=== PATIENT | female | born 1945 | race Hispanic/Latino ===

== ENCOUNTER → 2018-06-10 | Outpatient (CLI) | payer OTHER ==
[~2018-06-10] MED LIST: ALEN70TA2 PO; ASPI-1005 PO; CALC-190 PO; LATA7.5D OP; REGADENOSON 0.4 MG/5 ML PF SYG IVP ONE
== END | disposition home or self-care (01) ==
LOC: SHCH 08:57
PROVIDERS: ATTEND Internal Medicine Cardiovascular Disease
DX: R94.31 Abnormal electrocardiogram [ECG] [EKG] (principal); I20.9 Angina pectoris, unspecified; I10 Essential (primary) hypertension; E78.5 Hyperlipidemia, unspecified
CPT/HCPCS: 78452; 93017; 96374; A9500 ×2; J2785

== ENCOUNTER 2018-06-11 22:23 | Observation (INO) | payer OTHER ==
[~2018-06-11] VITALS: Ht 154.9 cm; Wt 68.0 kg
[2018-06-11] MEDS ORDERED: NITROGLYCERIN 1GM/1 INCH PACKET TD ONE (23:02)
[2018-06-11] MEDS ORDERED: ASPIRIN 325 MG TABLET ONE (23:02)
[2018-06-11 23:05] LABS: BASOPHILS % (AUTO) 0.6 % (0.0-5.0); EOSINOPHILS % (AUTO) 1.7 % (0.0-8.0); HEMATOCRIT 41.1 % (36-48); LYMPHOCYTES % (AUTO) 19.7 % (21.0-51.0); MEAN CORPUSCULAR HEMOGLOBIN 29.8 pg (27.0-33.0); MEAN CORPUSCULAR HGB CONC 33.8 g/dL (32.0-36.0); MONOCYTES % (AUTO) 7.3 % (3.0-13.0); NEUTROPHILS % (AUTO) 70.7 % (40.0-77.0); PLATELET COUNT (AUTO) 118 K/uL (130-400); RED BLOOD CELL COUNT(AUTO) 4.67 MIL/uL (4.00-5.50); RED CELL DISTRIBUTION WIDTH 14.3 % (11.0-15.5); WHITE BLOOD COUNT (AUTO) 5.9 K/uL (4.8-10.8)
[2018-06-11 23:18] LABS: CREATININE 0.7 mg/dL (0.5-1.5); POTASSIUM 3.4 mmol/L (3.5-5.1)
[2018-06-11 23:22] LABS: ALBUMIN 3.8 g/dL (3.5-5.0); BILIRUBIN,TOTAL 0.4 mg/dL (0.2-1.0); TOTAL PROTEIN, SERUM 7.9 g/dL (6.0-8.3)
[2018-06-12] MEDS ORDERED: MORPHINE SULFATE 2 MG/ML 1ML SYG IVP PRN (04:00)
[2018-06-12] MEDS ORDERED: ACETAMINOPHEN 325 MG TAB PO PRN (04:00)
[2018-06-12 05:52] LABS: CREATINE KINASE, TOTAL 61 U/L (21-232); MYOGLOBIN 25 ng/mL (10-92)
[2018-06-12] MEDS: NITROGLYCERIN 1GM/1 INCH PACKET TD SCH ×3 (05:59→21:25)
[2018-06-12 07:00] VITALS: BP 125/69
[2018-06-12 08:42] LABS: CREATINE KINASE, TOTAL 49 U/L (21-232); MYOGLOBIN 32 ng/mL (10-92); TROPONIN I < 0.04 ng/mL (0.00-0.06)
[2018-06-12 11:00] VITALS: BP 123/72
[2018-06-12] MEDS ORDERED: POTASSIUM CHLORIDE 20MEQ/100ML 100 ML IV PRN (11:30)
[2018-06-12] MEDS ORDERED: PHARMACY COMMUNICATION MISC SCH (11:30)
[2018-06-12] MEDS ORDERED: LIDOCAINE HCL-MPF 1% 2ML VIAL IVP PRN (11:30)
[2018-06-12] MEDS ORDERED: POTASSIUM CHLORIDE 10% ELIXIR 20 MEQ/15 ML UDCUP PO PRN (11:30)
[2018-06-12] MEDS ORDERED: LIDOCAINE HCL 2% VISCOUS 30 ML, MAG HYDROX/AL HYDROX/SIMETH 30 ML, DICYCLOMINE HCL 20 MG PO PRN ×3 (12:15)
[2018-06-12] MEDS ORDERED: COMPOUND PO MISCELLANEOUS 1 EACH MISC MISC PRN (12:15)
[2018-06-12] MEDS: POTASSIUM CHLORIDE 20 MEQ ERTAB PO PRN ×2 (12:42→15:15)
[2018-06-12 16:00] VITALS: BP 116/72
[2018-06-12] MEDS: PANTOPRAZOLE SODIUM 40 MG TABLET.DR PO SCH (16:15)
[2018-06-12 20:00] VITALS: BP 112/63
[2018-06-12] MEDS ORDERED: ALEN70TA2 PO (21:34)
[2018-06-12] MEDS ORDERED: LATA7.5D OP (21:34)
[2018-06-12] MEDS ORDERED: ASPI-1005 PO (21:34)
[2018-06-12] MEDS ORDERED: CALC-190 PO (21:34)
[2018-06-13] VITALS: BP 111/46
[2018-06-13 04:00] VITALS: BP 113/69
[2018-06-13] MEDS: PANTOPRAZOLE SODIUM 40 MG TABLET.DR PO SCH ×2 (05:32→18:23)
[2018-06-13] MEDS: NITROGLYCERIN 1GM/1 INCH PACKET TD SCH (05:33)
[2018-06-13 05:59] LABS: HEMATOCRIT 37.3 % (36-48); MEAN CORPUSCULAR HEMOGLOBIN 30.3 pg (27.0-33.0); MEAN CORPUSCULAR HGB CONC 34.4 g/dL (32.0-36.0); NUCLEATED RED BLOOD CELLS 0.1 % (0.0-0.19); PLATELET COUNT (AUTO) 118 K/uL (130-400); RED BLOOD CELL COUNT(AUTO) 4.23 MIL/uL (4.00-5.50); RED CELL DISTRIBUTION WIDTH 14.7 % (11.0-15.5)
[2018-06-13 06:09] LABS: ALBUMIN 3.3 g/dL (3.5-5.0); BILIRUBIN,TOTAL 0.5 mg/dL (0.2-1.0); CREATININE 0.7 mg/dL (0.5-1.5)
[2018-06-13 08:25] VITALS: BP 98/58
[2018-06-13] MEDS ORDERED: CALCIUM 600 + VITAMIN D 400 TABLET PO SCH (09:00)
[2018-06-13] MEDS ORDERED: ASPIRIN 81MG TAB.CHEW PO SCH (09:00)
[2018-06-13] MEDS ORDERED: NITROGLYCERIN 0.4 MG SL TAB SL PRN (09:15)
[2018-06-13 12:19] VITALS: BP 108/67
[2018-06-13] MEDS ORDERED: NITROGLYCERIN 1GM/1 INCH PACKET TD SCH (14:00)
[2018-06-13 16:29] VITALS: BP 121/72
[2018-06-13 19:43] VITALS: BP 134/60
[2018-06-13] MEDS ORDERED: LATANOPROST 2.5 ML DROPS OP SCH (21:00)
[2018-06-19] MEDS ORDERED: ALENDRONATE SODIUM 35 MG TAB PO SCH (06:30)
== END 2018-06-13 20:00 | disposition home or self-care (01) ==
LOC: EDH 22:23 → EDHIP 06-12 02:45 → 3CH 06-12 03:37
PROVIDERS: ADMIT Internal Medicine Critical Care Medicine; ATTEND Internal Medicine Critical Care Medicine
DX: R07.89 Other chest pain (principal); I10 Essential (primary) hypertension; E78.5 Hyperlipidemia, unspecified; F41.9 Anxiety disorder, unspecified; Z79.82 Long term (current) use of aspirin; Z87.891 Personal history of nicotine dependence
CPT/HCPCS: 36415 ×3; 71045; 80053 ×2; 82550 ×3; 83874 ×2; 84484 ×3; 85025; 85027; 93005 ×2; 93306; 99285; A4510; G0378 ×41

== ENCOUNTER → 2018-06-21 | Outpatient (CLI) | payer OTHER ==
[~2018-06-21] MED LIST changes: -REGADENOSON 0.4 MG/5 ML PF SYG IVP ONE
== END | disposition home or self-care (01) ==
LOC: OIH 12:40
PROVIDERS: ATTEND Internal Medicine Cardiovascular Disease
DX: Z13.6 Encounter for screening for cardiovascular disorders (principal)
CPT/HCPCS: 75571

== ENCOUNTER → 2018-10-10 | Outpatient (CLI) | payer OTHER | END | disposition home or self-care (01) | LOC: RAH 11:13 | PROVIDERS: ATTEND Family Medicine | DX: Z12.31 Encounter for screening mammogram for malignant neoplasm of breast (principal) | CPT/HCPCS: 77067 ==

== ENCOUNTER → 2018-12-23 | Outpatient (CLI) | payer OTHER | END | disposition home or self-care (01) | LOC: SHCH 09:50 | PROVIDERS: ATTEND Internal Medicine Cardiovascular Disease | DX: R06.00 Dyspnea, unspecified (principal); I87.2 Venous insufficiency (chronic) (peripheral) | CPT/HCPCS: 93970 ==

== ENCOUNTER 2019-06-16 11:27 | Inpatient (IN) | payer OTHER ==
[~2019-06-16] VITALS: Ht 152.4 cm; Wt 65.8 kg
[2019-06-16] MEDS ORDERED: ASPIRIN 325 MG TABLET ONE (11:37)
[2019-06-16 12:01] LABS: BASOPHILS % (AUTO) 0.4 % (0.0-5.0); EOSINOPHILS % (AUTO) 0.3 % (0.0-8.0); HEMATOCRIT 36.9 % (36-48); LYMPHOCYTES % (AUTO) 8.3 % (21.0-51.0); MEAN CORPUSCULAR HEMOGLOBIN 29.7 pg (27.0-33.0); MEAN CORPUSCULAR HGB CONC 34.3 g/dL (32.0-36.0); MEAN CORPUSCULAR VOLUME 86.6 fL (79-99); MONOCYTES % (AUTO) 6.9 % (3.0-13.0); NEUTROPHILS % (AUTO) 84.1 % (40.0-77.0); PLATELET COUNT (AUTO) 178 K/uL (130-400); RED BLOOD CELL COUNT(AUTO) 4.26 MIL/uL (4.00-5.50); RED CELL DISTRIBUTION WIDTH 13.7 % (11.0-15.5); WHITE BLOOD COUNT (AUTO) 8.1 K/uL (4.8-10.8)
[2019-06-16 12:26] LABS: INR 1.01 (0.85-1.15); PARTIAL THROMBOPLASTIN TIME 30.4 SEC (26.3-35.5); POTASSIUM 3.3 mmol/L (3.5-5.1); PROTHROMBIN TIME 10.6 SEC (9.6-11.6)
[2019-06-16 12:27] LABS: ALBUMIN 3.4 g/dL (3.5-5.0); BILIRUBIN,TOTAL 0.8 mg/dL (0.2-1.0); CREATININE 0.8 mg/dL (0.5-1.5); TOTAL PROTEIN, SERUM 7.9 g/dL (6.0-8.3)
[2019-06-16 12:36] LABS: APPEARANCE,URINE CLEAR (CLEAR); BILIRUBIN,URINE NEGATIVE (NEGATIVE); COLOR,URINE YELLOW (YELLOW); GLUCOSE, URINE (UA) NEGATIVE (NEGATIVE); KETONES,URINE NEGATIVE (NEGATIVE); LEUKOCYTE ESTERASE ,URINE NEGATIVE (NEGATIVE); NITRATE,URINE NEGATIVE (NEGATIVE); OCCULT BLOOD,URINE TRACE-LYSED (NEGATIVE); PH,URINE 7.5 (5.0-8.0); PROTEIN,URINE NEGATIVE (NEGATIVE); UROBILINOGEN,URINE 0.2 mg/dL (0.2-1.0)
[2019-06-16 12:53] LABS: B-TYPE NATRIURETIC PEPTIDE 116 pg/mL (0-100)
[2019-06-16 12:54] LABS: RBC,URINE 0-1 /HPF (0-1); WBC,URINE 0-1 /HPF (0-1)
[2019-06-16 12:55] LABS: BACTERIA,URINE Rare /HPF (None Seen); SQUAMOUS EPITHELIAL CELL,UR 0-2 /HPF (0-2)
[2019-06-16] MEDS ORDERED: LEVOFLOXACIN 500 MG/D5W 100 ML 100 ML ONE (14:17)
[2019-06-16] MEDS ORDERED: CEFTRIAXONE SODIUM 1 GM ONE (15:17)
[2019-06-16] MEDS ORDERED: SODIUM CHLORIDE 0.9% 100 ML IV ONE (15:17)
[2019-06-16] MEDS: SODIUM CHLORIDE 0.9% 1000ML 1,000 ML IV SCH (16:50)
[2019-06-16] MEDS ORDERED: GUAIFENESIN-DM 200/20 MG 10 ML PO PRN (17:00)
[2019-06-16] MEDS ORDERED: LACTULOSE 20 GM/30 ML UDCUP PO PRN (17:00)
[2019-06-16] MEDS ORDERED: ONDANSETRON HCL 4 MG/2 ML VIAL IV PRN (17:00)
[2019-06-16] MEDS ORDERED: NITROGLYCERIN 0.4 MG SL TAB SL PRN (17:00)
[2019-06-16 17:30] LABS: HEMOGLOBIN A1C 5.8 % (4.0-6.0)
[2019-06-16 17:31] LABS: MAGNESIUM 1.9 mg/dL (1.80-2.40); PHOSPHORUS 4.3 mg/dL (2.5-4.9); THYROID STIMULATING HORMONE 0.67 uIU/mL (0.36-3.74)
[2019-06-16 18:36] VITALS: BP 145/59
[2019-06-16 19:00] VITALS: BP 154/73
[2019-06-16] MEDS ORDERED: PNEUMOCOCCAL VACCINE POLYVALENT 0.5 ML/VIAL [PPV] IM ONE (19:30)
[2019-06-16] MEDS ORDERED: ISOS30TA6 PO (19:35)
[2019-06-16] MEDS ORDERED: PRAV10TA39 PO (19:35)
[2019-06-16] MEDS ORDERED: LIDOCAINE HCL-MPF 1% 2ML VIAL IV PRN (20:45)
[2019-06-16] MEDS ORDERED: POTASSIUM CHLORIDE 10% ELIXIR 20 MEQ/15 ML UDCUP PO PRN (20:45)
[2019-06-16] MEDS ORDERED: POTASSIUM CHLORIDE 20MEQ/100ML 100 ML IV PRN (20:45)
[2019-06-16] MEDS ORDERED: MAGNESIUM 2GM PREMIX 50ML 50 ML IV PRN (20:45)
[2019-06-16] MEDS: DOCUSATE SODIUM 100 MG CAP PO SCH (21:31)
[2019-06-16] MEDS: POTASSIUM CHLORIDE 20 MEQ ERTAB PO PRN ×2 (21:32→23:46)
[2019-06-16 23:00] VITALS: BP 139/65
[2019-06-17] MEDS: POTASSIUM CHLORIDE 20 MEQ ERTAB PO PRN (02:20)
[2019-06-17 03:00] VITALS: BP 121/87
[2019-06-17] MEDS: SODIUM CHLORIDE 0.9% 1000ML 1,000 ML IV SCH ×2 (04:02→13:04)
[2019-06-17 07:04] LABS: BASOPHILS % (AUTO) 0.3 % (0.0-5.0); LYMPHOCYTES % (AUTO) 7.2 % (21.0-51.0); MEAN CORPUSCULAR HEMOGLOBIN 29.9 pg (27.0-33.0); MEAN CORPUSCULAR HGB CONC 34.3 g/dL (32.0-36.0); MEAN CORPUSCULAR VOLUME 87.2 fL (79-99); MONOCYTES % (AUTO) 5.4 % (3.0-13.0); NEUTROPHILS % (AUTO) 87.1 % (40.0-77.0); PLATELET COUNT (AUTO) 170 K/uL (130-400); RED BLOOD CELL COUNT(AUTO) 4.24 MIL/uL (4.00-5.50)
[2019-06-17 07:12] LABS: CREATININE 0.8 mg/dL (0.5-1.5); MAGNESIUM 2.5 mg/dL (1.80-2.40); POTASSIUM 4.7 mmol/L (3.5-5.1)
[2019-06-17 08:00] VITALS: BP 142/67
[2019-06-17] MEDS: OSELTAMIVIR PHOSPHATE 75 MG CAP PO SCH ×2 (09:00→17:12)
[2019-06-17] MEDS: FAMOTIDINE 20MG TAB 20 MG TAB PO SCH (09:00)
[2019-06-17] MEDS: DOCUSATE SODIUM 100 MG CAP PO SCH ×2 (09:00→20:28)
--- NOTE | 2019-06-17 11:36 | NUR ---
PAGED DR. HOFFMANN AND SPOKE TO RITESH LEVY THE PA [employer]SIAN HISTORY PROFESSOR FOR DR. HOFFMANN AND MADE HER AWARE THERE IS NO NEUROLOGIST [employer]ISTORY PROFESSOR FOR THE WEEKEND AND IF SHE WANTS PT TRANSFER TO A DIFFERENT FACILITY OR AN SOC, A REMOTE CONSULT. PA STATED TO STOP BY AND SEE PT. Addendum: 06/17/19 at 1248 by AMBER CRAIG RN RN PAGED DR. HOFFMANN AND SPOKE TO DEON WEBB THE CHURN DRILLER RUSSIAN HISTORY PROFESSOR FOR DR. HOFFMANN AND MADE HER AWARE THERE IS NO NEUROLOGIST [employer]SIAN HISTORY PROFESSOR FOR THE WEEKEND AND IF SHE WANTS PT TRANSFER TO A DIFFERENT FACILITY OR AN SOC, A REMOTE CONSULT DUE TO LIMITED ROM TO NECK, PA STATED TO STOP BY AND SEE PT.
[2019-06-17 12:00] VITALS: BP 136/75
--- NOTE | 2019-06-17 13:35 | NUR ---
Nutrition intervention: Nutrition notification as per Pt's request. Pt admitted for chest pain. Pt currently NPO awaiting for diet order from MD. Pt requesting to speak to RD to ask if she will be fed today. Pt assured diet will begin as soon as we obtain clearance from physician. Pt also asking when she will be going home, pt encouraged to speak to RN about POC and d/c plans. Pt reports unintended wt loss however UTD on how much weight and in how long of a time. Recommendations: when medically feasible, advance diet therapy to Heart Healthy. Monitor I/O. Consult RD as nutrition concerns arise. Addendum: 06/17/19 at [address] RD Amended: Links added.
[2019-06-17] MEDS: ENOXAPARIN SODIUM 30 MG/0.3 ML SQ SCH (14:28)
[2019-06-17 16:00] VITALS: BP 155/69
[2019-06-17] MEDS: HYDROCODONE/ACETAMINOPHEN 5/325 MG TAB PO PRN (17:11)
[2019-06-17 19:00] VITALS: BP 122/63
[2019-06-17 23:00] VITALS: BP 143/85
[2019-06-18] MEDS: SODIUM CHLORIDE 0.9% 1000ML 1,000 ML IV SCH ×3 (01:57→18:50)
[2019-06-18 03:00] VITALS: BP 141/89
[2019-06-18] MEDS: HYDROCODONE/ACETAMINOPHEN 5/325 MG TAB PO PRN ×2 (05:35→09:16)
[2019-06-18 06:05] LABS: BASOPHILS % (AUTO) 0.6 % (0.0-5.0); EOSINOPHILS % (AUTO) 1.3 % (0.0-8.0); HEMATOCRIT 34.9 % (36-48); LYMPHOCYTES % (AUTO) 14.4 % (21.0-51.0); MEAN CORPUSCULAR HEMOGLOBIN 29.5 pg (27.0-33.0); MEAN CORPUSCULAR HGB CONC 33.8 g/dL (32.0-36.0); MEAN CORPUSCULAR VOLUME 87.2 fL (79-99); MONOCYTES % (AUTO) 8.7 % (3.0-13.0); PLATELET COUNT (AUTO) 187 K/uL (130-400); RED BLOOD CELL COUNT(AUTO) 4.01 MIL/uL (4.00-5.50); RED CELL DISTRIBUTION WIDTH 13.3 % (11.0-15.5); WHITE BLOOD COUNT (AUTO) 6.4 K/uL (4.8-10.8)
[2019-06-18 06:18] LABS: CREATININE 0.7 mg/dL (0.5-1.5); POTASSIUM 3.6 mmol/L (3.5-5.1)
--- NOTE | 2019-06-18 07:50 | NUR ---
PATIENT UPDATE Patient slept better overnight, no chest pain, no shortness of breath. NSR in the 70's, no ectopies noted. Neck and left shoulder discomfort not as bad, able to get up to the bedside commode with assistance with less pain. Able to move better with less neck stiffness in the bed.
[2019-06-18 08:00] VITALS: BP 129/71
[2019-06-18] MEDS: DOCUSATE SODIUM 100 MG CAP PO SCH ×2 (09:09→20:36)
[2019-06-18] MEDS: FAMOTIDINE 20MG TAB 20 MG TAB PO SCH (09:09)
[2019-06-18] MEDS: OSELTAMIVIR PHOSPHATE 75 MG CAP PO SCH (09:09)
[2019-06-18] MEDS: ENOXAPARIN SODIUM 30 MG/0.3 ML SQ SCH (09:10)
[2019-06-18 11:28] VITALS: BP 136/65
[2019-06-18] MEDS ORDERED: HYDROMORPHONE HCL 0.5 MG/0.5 ML ML IVP PRN (12:30)
--- NOTE | 2019-06-18 12:37 | NUR ---
Dr. Tenorio called and notified of Consult. pending to see pt.
[2019-06-18] MEDS: DEXAMETHASONE SOD PHOSPHATE 4 MG/ML 1ML VIAL IVP SCH ×2 (14:07→22:16)
[2019-06-18 16:00] VITALS: BP 140/72
[2019-06-18 19:10] VITALS: BP 128/66
--- NOTE | 2019-06-18 19:28 | NUR ---
cm note pt resides at home with spouse, independent with ambulation/adls. no dme. no services. dc plan is back to home. Addendum: 06/18/19 at 1929 by QIANA SCHNEIDER CM Amended: Links added.
[2019-06-18] MEDS: BACLOFEN 10 MG TABLET PO SCH (20:36)
[2019-06-18 23:00] VITALS: BP 134/68
[2019-06-19] MEDS: SODIUM CHLORIDE 0.9% 1000ML 1,000 ML IV SCH ×2 (00:44→15:01)
[2019-06-19] MEDS: HYDROCODONE/ACETAMINOPHEN 5/325 MG TAB PO PRN (00:48)
--- NOTE | 2019-06-19 00:48 | NUR ---
PAIN Bledsoe given for c/o of headache.
--- NOTE | 2019-06-19 01:48 | NUR ---
MED EFFECT Pt resting quietly in bed,daughter at bedside.Pt wearing soft cervical collar,nicole well.
[2019-06-19 03:00] VITALS: BP 135/59
[2019-06-19 05:37] LABS: BASOPHILS % (AUTO) 0.1 % (0.0-5.0); HEMATOCRIT 36.8 % (36-48); LYMPHOCYTES % (AUTO) 9.9 % (21.0-51.0); MEAN CORPUSCULAR HEMOGLOBIN 29.5 pg (27.0-33.0); MEAN CORPUSCULAR HGB CONC 33.6 g/dL (32.0-36.0); MEAN CORPUSCULAR VOLUME 87.7 fL (79-99); MONOCYTES % (AUTO) 2.2 % (3.0-13.0); NEUTROPHILS % (AUTO) 87.8 % (40.0-77.0); PLATELET COUNT (AUTO) 192 K/uL (130-400); RED BLOOD CELL COUNT(AUTO) 4.19 MIL/uL (4.00-5.50); RED CELL DISTRIBUTION WIDTH 13.1 % (11.0-15.5); WHITE BLOOD COUNT (AUTO) 5.5 K/uL (4.8-10.8)
[2019-06-19] MEDS: DEXAMETHASONE SOD PHOSPHATE 4 MG/ML 1ML VIAL IVP SCH ×3 (05:49→22:04)
[2019-06-19 05:55] LABS: CREATININE 0.6 mg/dL (0.5-1.5); POTASSIUM 3.8 mmol/L (3.5-5.1)
[2019-06-19 07:30] VITALS: BP 138/62
[2019-06-19] MEDS: BACLOFEN 10 MG TABLET PO SCH ×3 (08:47→19:59)
[2019-06-19] MEDS: DOCUSATE SODIUM 100 MG CAP PO SCH ×2 (08:47→19:59)
[2019-06-19] MEDS: FAMOTIDINE 20MG TAB 20 MG TAB PO SCH (08:47)
[2019-06-19] MEDS: LACTULOSE 20 GM/30 ML UDCUP PO SCH (08:48)
[2019-06-19] MEDS: ENOXAPARIN SODIUM 30 MG/0.3 ML SQ SCH (08:49)
--- NOTE | 2019-06-19 10:41 | NUR ---
Pt Update Pt refused lumber puncture to r/o meningitis.
[2019-06-19 11:00] VITALS: BP 132/70
[2019-06-19 16:00] VITALS: BP 149/73
[2019-06-19 19:15] VITALS: BP 124/52
[2019-06-19] MEDS ORDERED: **HM**(Pravastatin Sodium 10 MG PO SCH (21:00)
[2019-06-19] MEDS ORDERED: LATANOPROST 2.5 ML DROPS OP SCH (21:00)
--- NOTE | 2019-06-19 21:00 | NUR ---
VACCINE Pneumonia vaccine offered,pt states she wants it in the morning.
[2019-06-19 23:20] VITALS: BP 142/71
[2019-06-20 03:20] VITALS: BP 162/62
[2019-06-20] MEDS: SODIUM CHLORIDE 0.9% 1000ML 1,000 ML IV SCH ×2 (03:23→10:50)
--- NOTE | 2019-06-20 03:29 | NUR ---
NEW IV New iv started to left forearm,nicole well.Old iv site was leaking,iv dcd.cath tip intact.
[2019-06-20] MEDS: DEXAMETHASONE SOD PHOSPHATE 4 MG/ML 1ML VIAL IVP SCH ×2 (06:01→14:00)
[2019-06-20 07:30] VITALS: BP 148/79
[2019-06-20] MEDS ORDERED: DOCU-275 PO (08:04)
[2019-06-20] MEDS ORDERED: BACL10TA PO (08:04)
[2019-06-20] MEDS: ISOSORBIDE MONO 30MG TAB SR PO SCH ×2 (09:00→12:00)
[2019-06-20] MEDS: BACLOFEN 10 MG TABLET PO SCH ×2 (09:00→14:00)
[2019-06-20] MEDS ORDERED: CALCIUM 600 + VITAMIN D 400 TABLET PO SCH (09:00)
[2019-06-20] MEDS ORDERED: ASPIRIN 81MG TAB.CHEW PO SCH (09:00)
[2019-06-20] MEDS: LACTULOSE 20 GM/30 ML UDCUP PO SCH (10:27)
[2019-06-20] MEDS: DOCUSATE SODIUM 100 MG CAP PO SCH (10:27)
[2019-06-20] MEDS: FAMOTIDINE 20MG TAB 20 MG TAB PO SCH (10:27)
[2019-06-20] MEDS: ENOXAPARIN SODIUM 30 MG/0.3 ML SQ SCH (10:28)
[2019-06-20 11:00] VITALS: BP 124/56
--- NOTE | 2019-06-20 11:30 | NUR ---
WALKING IN HALLWAY WITH PT/WALKER.
--- NOTE | 2019-06-20 11:56 | NUR ---
CM Note: dcp to home pt will f/u w/Dr King Miranda for HH PT CM met with pt discussed MD recommendations. Made aware pt does not qualify for rehab placement at pt able to ambulate 100Ft. Pt will follow up with PCP Dr. Rory Miranda w/[facility] for home health PT. Instructed pt, spouse and granddaughter to see Dr Miranda today/first thing tomorrow to get home health established for PT. Verbalized understanding. Primary nurse aware. CM to cont to follow up.
--- NOTE | 2019-06-20 15:54 | NUR ---
BETY NOTIFICATION/ FOLLOW UP DIET: HEART HEALTHY. PO INTAKE 75% AND HAS STEADY APPETITE PER PT. PT TOLERATING DIET WELL. LBM: 06/19. PT EATS SLOWLY TO ALLOW FOOD TO PASS SMOOTHLY WITHOUT DISCOMFORT PER PT. NO NAUSEA, EMESIS OR DIARRHEA AT THIS TIME. BETY RECOMMENDS CONTINUE CURRENT DIET. PT TOLERATING WELL. WILL CONTINUE TO MONITOR AND FOLLOW UP NEEDED. Addendum: 06/20/19 at [address] Amended: Links added.
--- NOTE | 2019-06-20 17:48 | NUR ---
DISCHARGED NOW USING TEACH BACK.VERBALIZES UNDERSTANDING OF ALL INST. GIVEN. MEDICATIONS TO BE PICKED UP AT [facility]. WILL FOLLOWUP WITH DR. LANGFORD. SCHEDULED.
[2019-06-26] MEDS ORDERED: ALENDRONATE SODIUM 35 MG TAB PO SCH (09:00)
== END 2019-06-20 17:40 | disposition home health service (06) | DRG 543 ==
LOC: EDH 11:27 → EDHIP 16:10 → OBSVTOIN 16:10 → 3BH 18:07
PROVIDERS: ADMIT Internal Medicine Pulmonary Disease; ATTEND Internal Medicine Pulmonary Disease
DX: M80.08XA Age-related osteoporosis with current pathological fracture, vertebra(e), initial encounter for fracture (principal); N39.0 Urinary tract infection, site not specified; E78.5 Hyperlipidemia, unspecified; I10 Essential (primary) hypertension; I25.10 Atherosclerotic heart disease of native coronary artery without angina pectoris; K59.00 Constipation, unspecified; M19.90 Unspecified osteoarthritis, unspecified site; R07.89 Other chest pain; X58.XXXA Exposure to other specified factors, initial encounter; Y93.89 Activity, other specified; Z79.83 Long term (current) use of bisphosphonates; Z87.891 Personal history of nicotine dependence; Z91.81 History of falling; Y92.89 Other specified places as the place of occurrence of the external cause; Y99.8 Other external cause status
CPT/HCPCS: 36415; 70450; 71045; 72125; 72131; 76770; 80048; 80053; 80061; 81001; 82150; 82550; 82948; 83036; 83605; 83735; 83880; 84100; 84443; 84484; 84702; 85025; 85610; 85651; 85730; 86140; 86308; 87040; 87088; 87804; 93005; 93306; 97039; G0378; J0696; J1100; J1650; J1956; J3475; J7030

== ENCOUNTER 2021-03-18 13:50 | Observation (INO) | payer OTHER ==
[~2021-03-18] VITALS: Ht 154.9 cm; Wt 65.7 kg
[~2021-03-18 13:50] MED LIST changes: +BACL10TA PO; +DOCU-270 PO; +ISOS30TA92 PO; +PRAV10TA39 PO
[2021-03-18 14:46] VITALS: BP 122/56
[2021-03-18 14:51] LABS: BASOPHILS % (AUTO) 0.4 % (0.0-5.0); EOSINOPHILS % (AUTO) 0.7 % (0.0-8.0); HEMATOCRIT 38.2 % (36-48); LYMPHOCYTES % (AUTO) 9.8 % (21.0-51.0); MEAN CORPUSCULAR HGB CONC 31.7 g/dL (32.0-36.0); MEAN CORPUSCULAR VOLUME 91.6 fL (79-99); MONOCYTES % (AUTO) 5.9 % (3.0-13.0); NEUTROPHILS % (AUTO) 83.1 % (40.0-77.0); PLATELET COUNT (AUTO) 128 K/uL (130-400); RED BLOOD CELL COUNT(AUTO) 4.17 MIL/uL (4.00-5.50); RED CELL DISTRIBUTION WIDTH 13.2 % (11.0-15.5)
[2021-03-18 15:02] LABS: INR 1.05 (0.85-1.15); PROTHROMBIN TIME 11.4 SEC (9.6-11.6)
[2021-03-18 15:03] LABS: CREATININE 0.8 mg/dL (0.5-1.5); POTASSIUM 3.9 mmol/L (3.5-5.1)
[2021-03-18 15:06] LABS: ALBUMIN 3.4 g/dL (3.5-5.0); BILIRUBIN,TOTAL 0.5 mg/dL (0.2-1.0); TOTAL PROTEIN, SERUM 6.7 g/dL (6.0-8.3)
[2021-03-18 15:12] LABS: B-TYPE NATRIURETIC PEPTIDE 104 pg/mL (0-100)
[2021-03-18 18:39] VITALS: BP 137/61
[2021-03-18] MEDS ORDERED: MAG/ALUM/SIMETH 30 ML UDCUP PO PRN (19:00)
[2021-03-18] MEDS ORDERED: NITROGLYCERIN 0.4 MG SL TAB SL PRN (19:00)
[2021-03-18] MEDS ORDERED: ACETAMINOPHEN 325 MG TAB PO PRN ×2 (19:00)
[2021-03-18] MEDS ORDERED: GUAIFENESIN-DM 200/20 MG 10 ML PO PRN (19:00)
[2021-03-18] MEDS ORDERED: LABETALOL 20MG SYG IV PRN (19:00)
[2021-03-18] MEDS ORDERED: BENZONATATE 100 MG CAPSULE PO PRN (19:00)
[2021-03-18] MEDS ORDERED: ONDANSETRON 4MG INJ IV PRN (19:00)
[2021-03-18] MEDS ORDERED: LACTULOSE 20 GM/30 ML UDCUP PO PRN (19:00)
[2021-03-18] MEDS ORDERED: ZOLPIDEM TARTRATE 5 MG TAB PO PRN (19:00)
[2021-03-18] MEDS ORDERED: POTASSIUM CHLORIDE 20MEQ/100ML 100 ML IV PRN (19:30)
[2021-03-18] MEDS ORDERED: GLUCAGON 1MG KIT 1 MG ML IM PRN (19:30)
[2021-03-18] MEDS ORDERED: DEXTROSE 50%-WATER 50 ML DISP.SYRIN IV PRN (19:30)
[2021-03-18] MEDS ORDERED: MAGNESIUM 2GM PREMIX 50ML 50 ML IV PRN (19:30)
[2021-03-18] MEDS ORDERED: KCL 20 MEQ ERTAB PO PRN (19:30)
[2021-03-18] MEDS ORDERED: POTASSIUM CHLORIDE 10% ELIXIR 20 MEQ/15 ML UDCUP PO PRN (19:30)
[2021-03-18 19:52] VITALS: BP 155/58
[2021-03-18 20:27] VITALS: BP_SYST 160; BP_SYST 170; BP_DIAS 73; BP_DIAS 74
[2021-03-18 20:28] VITALS: BP 163/75
[2021-03-18] MEDS ORDERED: ISOS20TA85 PO (20:51)
[2021-03-18] MEDS ORDERED: ATOR10 PO (20:51)
[2021-03-18 23:53] VITALS: BP 145/57
[2021-03-19] VITALS (9 sets, daily range): BP systolic 92–165; BP diastolic 47–77
[2021-03-19] MEDS: FAMOTIDINE 20MG VIAL IV SCH (08:47)
[2021-03-19] MEDS: ASPIRIN 81MG CHEW TAB PO SCH (08:48)
[2021-03-19] MEDS: ISOSORBIDE MONO 30MG SR TAB PO SCH (08:48)
[2021-03-19] MEDS ORDERED: ISOS30TA92 PO (08:59)
[2021-03-19] MEDS: ATORVASTATIN 20 MG TABLET PO SCH (09:00)
[2021-03-19] MEDS: ENOXAPARIN SODIUM 40 MG/0.4 ML SYRINGE SQ SCH (09:11)
[2021-03-19 09:49] LABS: HEMATOCRIT 42.6 % (36-48); MEAN CORPUSCULAR HEMOGLOBIN 29.1 pg (27.0-33.0); MEAN CORPUSCULAR HGB CONC 32.4 g/dL (32.0-36.0); MEAN CORPUSCULAR VOLUME 89.9 fL (79-99); PLATELET COUNT (AUTO) 149 K/uL (130-400); RED BLOOD CELL COUNT(AUTO) 4.74 MIL/uL (4.00-5.50); RED CELL DISTRIBUTION WIDTH 13.2 % (11.0-15.5); WHITE BLOOD COUNT (AUTO) 5.9 K/uL (4.8-10.8)
[2021-03-19 09:58] LABS: CREATININE 0.9 mg/dL (0.5-1.5); POTASSIUM 3.6 mmol/L (3.5-5.1)
[2021-03-19 10:03] LABS: ALBUMIN 3.6 g/dL (3.5-5.0); BILIRUBIN,TOTAL 0.5 mg/dL (0.2-1.0); TOTAL PROTEIN, SERUM 7.3 g/dL (6.0-8.3)
[2021-03-19 10:11] LABS: BASOPHILS % (MANUAL) 1 % (0-2); EOSINOPHILS % (MANUAL) 3 % (1-6); LYMPHOCYTES % (MANUAL) 27 % (22-44); MAN.DIFF COMMENT-IMPRESSION MANUAL DIFFERENTIAL; MONOCYTES % (MANUAL) 7 % (2-9); PLATELET MORPHOLOGY COMMENT ADEQUATE; SEGMENTED NEUTROPHILS % 62 % (40-70)
[2021-03-19 15:10] LABS: APPEARANCE,URINE Clear (CLEAR); BILIRUBIN,URINE Small (NEGATIVE); COLOR,URINE Dark Yellow (YELLOW); GLUCOSE, URINE (UA) Negative (NEGATIVE); KETONES,URINE Trace mg/dL (NEGATIVE); LEUKOCYTE ESTERASE ,URINE Small (NEGATIVE); NITRATE,URINE Negative (NEGATIVE); OCCULT BLOOD,URINE Trace (NEGATIVE); PH,URINE 5.5 (5.0-8.0); PROTEIN,URINE Trace mg/dL (NEGATIVE)
[2021-03-19 15:16] LABS: BACTERIA,URINE Few /HPF (None Seen)
[2021-03-19 15:17] LABS: MUCUS,URINE Few LPF (None Seen); SQUAMOUS EPITHELIAL CELL,UR Few /HPF (0-2)
[2021-03-19] MEDS ORDERED: CEFTRIAXONE 1G VIAL IVP SCH (15:30)
[2021-03-19] MEDS: LACTATED RINGERS 1000ML 1,000 ML IV SCH (18:21)
[2021-03-20] VITALS: BP 152/67
[2021-03-20 04:00] VITALS: BP 114/60
[2021-03-20 05:53] LABS: ALBUMIN 3.2 g/dL (3.5-5.0); BILIRUBIN,TOTAL 0.4 mg/dL (0.2-1.0); CREATININE 0.8 mg/dL (0.5-1.5); PHOSPHORUS 3.3 mg/dL (2.5-4.9); POTASSIUM 3.8 mmol/L (3.5-5.1); THYROID STIMULATING HORMONE 1.46 uIU/mL (0.36-3.74); TOTAL PROTEIN, SERUM 6.6 g/dL (6.0-8.3)
[2021-03-20 08:00] VITALS: BP 162/69
[2021-03-20] MEDS: ASPIRIN 81MG CHEW TAB PO SCH (08:45)
[2021-03-20] MEDS: ISOSORBIDE MONO 30MG SR TAB PO SCH (08:45)
[2021-03-20] MEDS: FAMOTIDINE 20MG VIAL IV SCH (08:46)
[2021-03-20] MEDS: ENOXAPARIN SODIUM 40 MG/0.4 ML SYRINGE SQ SCH (08:46)
[2021-03-20] MEDS ORDERED: NITROGLYCERIN 1GM OINT 1 INCH/1GM TD SCH (10:00)
[2021-03-20] MEDS: LACTATED RINGERS 1000ML 1,000 ML IV SCH (11:11)
[2021-03-20 11:32] VITALS: BP 157/64
[2021-03-20] MEDS ORDERED: ISOS30TA11 PO (13:43)
[2021-03-20 15:54] VITALS: BP 114/66
[2021-03-20] MEDS ORDERED: ATORVASTATIN 20 MG TABLET PO SCH (21:00)
== END 2021-03-20 18:20 | disposition home or self-care (01) ==
LOC: EDH 14:08 → EDHIP 17:37 → 3BH 03-19 00:26
PROVIDERS: ADMIT Internal Medicine Critical Care Medicine; ATTEND Internal Medicine Critical Care Medicine
DX: R55 Syncope and collapse (principal); Z20.822 Contact with and (suspected) exposure to COVID-19; R53.1 Weakness; R10.9 Unspecified abdominal pain; I25.10 Atherosclerotic heart disease of native coronary artery without angina pectoris; H40.9 Unspecified glaucoma; J98.11 Atelectasis; I10 Essential (primary) hypertension; E78.5 Hyperlipidemia, unspecified; R79.89 Other specified abnormal findings of blood chemistry; R77.8 Other specified abnormalities of plasma proteins; E78.00 Pure hypercholesterolemia, unspecified; Z79.899 Other long term (current) drug therapy; Z79.82 Long term (current) use of aspirin; Z79.83 Long term (current) use of bisphosphonates; R06.02 Shortness of breath; R07.9 Chest pain, unspecified
CPT/HCPCS: 36415 ×3; 70450; 71045; 71275; 80053 ×3; 81001; 82550; 82948 ×3; 83735 ×2; 83880; 84100; 84443; 84484 ×4; 85025 ×2; 85378; 85610; 87088; 87635; 93005 ×3; 93306; 93356; 93880; 93970; 96361; 96372 ×2; 96374; 96375; 96376; 97039 ×2; 97116; 97161; 99285; C9803; G0378 ×46; G8978; G8979; G8980; G8981; G8982; G8983; J0696; J1650 ×2; J3490 ×2; J7120 ×2

== ENCOUNTER 2021-07-04 15:18 | Emergency (ER) | payer OTHER ==
[~2021-07-04] VITALS: Ht 157.5 cm; Wt 72.6 kg
[~2021-07-04 15:18] MED LIST changes: -ALEN70TA2 PO; +ATOR10 PO; -BACL10TA PO; -DOCU-270 PO; +ISOS30TA11 PO; -ISOS30TA92 PO; -LATA7.5D OP; -PRAV10TA39 PO
[2021-07-04] MEDS ORDERED: KETOROLAC 30MG VIAL (30MG/ML) ONE (15:38)
[2021-07-04] MEDS ORDERED: MELO7.5T12 PO (16:12)
[2021-07-04 16:28] VITALS: BP 154/84
[2021-07-04] MEDS ORDERED: KETOROLAC 30MG VIAL (30MG/ML) IM ONE (16:30)
== END 2021-07-04 17:49 | disposition home or self-care (01) ==
LOC: EDH 15:18
DX: S93.402A Sprain of unspecified ligament of left ankle, initial encounter (principal); S93.602A Unspecified sprain of left foot, initial encounter; I25.10 Atherosclerotic heart disease of native coronary artery without angina pectoris; E78.00 Pure hypercholesterolemia, unspecified; Z79.82 Long term (current) use of aspirin; Z79.1 Long term (current) use of non-steroidal anti-inflammatories (NSAID); Z79.899 Other long term (current) drug therapy; W18.39XA Other fall on same level, initial encounter; Y93.89 Activity, other specified; Y92.89 Other specified places as the place of occurrence of the external cause; Y99.8 Other external cause status
CPT/HCPCS: 73610; 73630; 96372; 99284; J1885

== ENCOUNTER → 2022-06-22 | Outpatient (CLI) | payer OTHER ==
[~2022-06-22] MED LIST changes: +MELO7.5T12 PO
== END | disposition home or self-care (01) ==
LOC: RAH 10:18
PROVIDERS: ATTEND Family Medicine
DX: Z12.31 Encounter for screening mammogram for malignant neoplasm of breast (principal)
CPT/HCPCS: 77067

== ENCOUNTER → 2023-06-23 | Outpatient (CLI) | payer OTHER | END | disposition home or self-care (01) | LOC: RAH 09:55 | PROVIDERS: ATTEND Family Medicine | DX: Z12.31 Encounter for screening mammogram for malignant neoplasm of breast (principal) | CPT/HCPCS: 77067 ==

== ENCOUNTER → 2024-08-25 | Outpatient (CLI) | payer OTHER ==
--- NOTE | 2024-08-25 13:48 | HMCSR ---
APPROVED REPORT Height: 5 ft 1in Weight: 140 lbs TEST INDICATIONS Chest Pressure, I25.119 ARTHROCLS HRT DZ OF NTV COR ART W/UNSP ANG PCT The imaging protocol used to acquire images was Rest Tc-99m/stress Tc-99m 1 day Consent: The procedure was explained and understood by the patient. Informerd consent was witnessed Tomy Cervantes RN First, low dose rest was performed then high dose stress. RESTING DATA: The resting ekg shows: NSR Rest SPECT myocardial perfusion imaging was performed in supine position 70 minutes following the int ravenous injection of 11.3 mCi of Tc-99 Sestamibi. Time of rest injection: 09:29: Date: 08/25/2024 Time of rest imagin:39: Date: 08/25/2024 PHARMACOLOGIC STRESS: Pharmacologic stress test was performed by injecting regadenoson 0.4 mg IV push followed by the intra venous injection of 31.0 mCi of Tc-99 Sestamibi. Time of stress injection: 11:02: Date: 08/25/2024 Time of stress imagin:16: Date: 08/25/2024 Heart Rate at time of stress injection: 59 bpm. Gated Stress SPECT was performed 74 minutes after stress injection. The images were gated to evaluate regional wall motion and calculate left ventricular ejection fracti on. STRESS DETAILS Reason for Termination: Infusion complete Stress Symptoms: Dyspnea Max HR Achieved: 77 bpm % of APMHR Achieved: 54 Max Blood Pressure: 142/63 mmHg Stress ECG: NSR Study quality was good. Lung uptake was Normal. Artifact: increased GI uptake LEFT VENTRICLE Size: The left ventricular size is normal. Systolic Function:The left ventricular systolic function is normal. Wall Motion: Left ventricular wall motion is normal. The left ventricular ejection fraction was calculated to be 74%.TID = . LV PERFUSION The rest and stress images show normal perfusion. IMPRESSION Normal pharmacologic nuclear stress test. Global LV Function: Normal Stress ECG Summary: Normal LV Perfusion Summary: Normal Conclusion Normal pharmacologic nuclear stress test. Global LV Function: Normal Stress ECG Summary: Normal LV Perfusion Summary: Normal
[2024-08-25] MEDS: REGADENOSON 0.4 MG/5 ML PF SYG IVP ONE (15:14)
== END | disposition home or self-care (01) ==
LOC: SHCH 09:06
PROVIDERS: ATTEND Internal Medicine Cardiovascular Disease
DX: I25.119 Atherosclerotic heart disease of native coronary artery with unspecified angina pectoris (principal); R07.9 Chest pain, unspecified; R06.00 Dyspnea, unspecified; Z79.890 Hormone replacement therapy
CPT/HCPCS: 78452; 93017; J2785; A9500 ×2